=== PATIENT | female | born 1990 | race Caucasian/White ===

== ENCOUNTER 2020-10-23 03:47 | Emergency (ER) | payer OTHER ==
[~2020-10-23] VITALS: Ht 160 cm; Wt 54.4 kg
[~2020-10-23 03:47] MED LIST: FAMOTIDINE PO; PRENATAL; PROMETRIUM; ZOFRAN ODT4 MG PO
[2020-10-23] MEDS ORDERED: DESYREL150 MG PO (03:59)
[2020-10-23 04:44] LABS: ABSOLUTE BASOPHILS 0.1 thou/uL (0.0-0.2); ABSOLUTE LYMPHOCYTES 1.8 thou/uL (0.8-5.3); ABSOLUTE MONOCYTES 0.8 thou/uL (0.0-1.2); ABSOLUTE NEUTROPHILS 12.3 thou/uL (1.6-8.1); BASOPHILS 0.6 %; EOSINOPHILS 0.3 %; HEMATOCRIT 41.9 % (37.0-47.0); HEMOGLOBIN 14.1 gm/dL (12.0-15.0); LYMPHOCYTES 12.1 %; MCH 30.3 pg (26.0-34.0); MCHC 33.6 g/dL (28.0-37.0); MCV 90.2 fL (80.0-100.0); MONOCYTES 5.6 %; MPV 8.8 fl. (7.2-11.1); NUCLEATED RBCS 0 /100WBC; PLATELET COUNT* 288 thou/uL (150-400); POLYS 81.4 %; RBC 4.64 mil/uL (4.20-5.00); RDW-CV 12.9 % (10.5-14.5); WBC 15.1 thou/uL (4.0-11.0)
[2020-10-23 05:00] LABS: CALCIUM 8.1 mg/dL (8.5-10.1)
[2020-10-23 05:04] LABS: ALBUMIN 4.5 g/dL (3.4-5.0); TOTAL BILIRUBIN 0.5 mg/dL (<0.1-1.0); TOTAL PROTEIN 8.1 g/dL (6.4-8.2)
[2020-10-23 05:40] LABS: URINE BILIRUBIN NEGATIVE (Negative); URINE BLOOD TRACE (Negative); URINE CLARITY CLEAR; URINE COLOR YELLOW; URINE GLUCOSE-RANDOM NEGATIVE (Negative); URINE KETONES NEGATIVE (Negative); URINE LEUKOCYTES-REFLEX TRACE (Negative); URINE NITRITE-REFLEX NEGATIVE (Negative); URINE PROTEIN 1+ (Negative); URINE SPECIFIC GRAVITY >= 1.030 (1.005-1.030); URINE UROBILINOGEN 0.2 E.U./dl (0.2-1.0)
[2020-10-23 05:48] LABS: AMP/METHAMP Negative (Negative); BARBITURATES Negative (Negative); BENZODIAZEPINES POSITIVE (Negative); COCAINE Negative (Negative); METHADONE Negative (Negative); OPIATES Negative (Negative); PCP Negative (Negative); THC POSITIVE (Negative)
[2020-10-23 05:49] LABS: SQUAMOUS 4-10 Moderate /LPF (0-3)
[2020-10-23 05:50] LABS: CRYSTALS None Seen /LPF (None Seen); FINE GRANULAR CASTS 0-3 Few /LPF (None Seen); MUCUS 4-6 Moderate strn/LPF (None Seen); URINE RBC 0-2 Rare /HPF (0-2); URINE WBC-REFLEX 6-15 Few /HPF (0-5)
[2020-10-23 18:11] VITALS: BP 131/85
== END 2020-10-23 18:14 | disposition still patient (30) ==
LOC: M.ERS 03:47
PROVIDERS: Emergency Medicine
DX: F31.9 Bipolar disorder, unspecified (principal); Z20.822 Contact with and (suspected) exposure to COVID-19; Z79.899 Other long term (current) drug therapy; Z88.0 Allergy status to penicillin

== ENCOUNTER 2020-12-27 10:00 | Emergency (ER) | payer OTHER ==
[~2020-12-27] VITALS: Ht 160 cm; Wt 52.2 kg
[~2020-12-27 10:00] MED LIST changes: +DESYREL150 MG PO
[2020-12-27] MEDS ORDERED: KLONOPIN1 MG PO (10:16)
[2020-12-27 10:46] LABS: ABSOLUTE BASOPHILS 0.1 thou/uL (0.0-0.2); ABSOLUTE LYMPHOCYTES 1.1 thou/uL (0.8-5.3); ABSOLUTE MONOCYTES 0.7 thou/uL (0.0-1.2); ABSOLUTE NEUTROPHILS 7.4 thou/uL (1.6-8.1); BASOPHILS 0.5 %; EOSINOPHILS 0.3 %; HEMATOCRIT 42.7 % (37.0-47.0); HEMOGLOBIN 14.4 gm/dL (12.0-15.0); LYMPHOCYTES 11.9 %; MCH 30.7 pg (26.0-34.0); MCHC 33.7 g/dL (28.0-37.0); MCV 91.1 fL (80.0-100.0); MONOCYTES 7.5 %; MPV 8.9 fl. (7.2-11.1); NUCLEATED RBCS 0 /100WBC; PLATELET COUNT* 237 thou/uL (150-400); POLYS 79.8 %; RBC 4.68 mil/uL (4.20-5.00); RDW-CV 13.2 % (10.5-14.5); WBC 9.3 thou/uL (4.0-11.0)
[2020-12-27 10:49] LABS: URINE BILIRUBIN NEGATIVE (Negative); URINE BLOOD NEGATIVE (Negative); URINE CLARITY CLEAR; URINE COLOR YELLOW; URINE GLUCOSE-RANDOM NEGATIVE (Negative); URINE KETONES NEGATIVE (Negative); URINE LEUKOCYTES-REFLEX NEGATIVE (Negative); URINE NITRITE-REFLEX NEGATIVE (Negative); URINE PROTEIN NEGATIVE (Negative); URINE SPECIFIC GRAVITY <= 1.005 (1.005-1.030); URINE UROBILINOGEN 0.2 E.U./dl (0.2-1.0)
[2020-12-27 10:52] LABS: CALCIUM 9.2 mg/dL (8.5-10.1); CREATININE 0.7 mg/dL (0.6-1.3); POTASSIUM 3.6 mmol/L (3.5-5.1)
[2020-12-27 10:56] LABS: ALBUMIN 4.6 g/dL (3.4-5.0); TOTAL BILIRUBIN 0.5 mg/dL (<0.1-1.0); TOTAL PROTEIN 8.1 g/dL (6.4-8.2)
[2020-12-27 10:57] LABS: AMP/METHAMP Negative (Negative); BARBITURATES Negative (Negative); BENZODIAZEPINES Negative (Negative); COCAINE Negative (Negative); METHADONE Negative (Negative); OPIATES Negative (Negative); PCP Negative (Negative); THC POSITIVE (Negative)
[2020-12-27] MEDS ORDERED: CLONAZEPAM 0.50.5 M1 PO (12:14)
[2020-12-27] MEDS ORDERED: ZOFRAN ODT4 MG DISSOLVE (12:16)
[2020-12-27 12:25] VITALS: BP 150/81
--- NOTE | 2020-12-27 16:20 | EKG ---
[place] [address] ELECTROCARDIOGRAM REPORT Name: TAMIKO MONTESBERLETamra Branch Room: [facility]#: [id number] Admission: 12/27/20 Attend Phys: Discharge: 12/27/20 Date of : 88 Date of Service: 12/27/20 [facility] Report #: [id number] THIS REPORT FOR: //name// [facility] ED Test Date: 2020-12-27 Test Time: 10:37:48 Pat Name: RAMIN MONTES Department: Room: Gender: F Communications Planner: ZENAIDA : 1990 Requested By: Levi Kay Order Number: [id number] MD: Nestor Rizo Measurements Intervals Muddy Rate: 81 P: IA: QRS: 66 QRSD: 115 T: 4 QT: 408 QTc: 474 Interpretive Statements Atrial fibrillation Incomplete right bundle branch block Baseline wander in lead(s) V5,V6 No previous ECG available for comparison Electronically Signed On 12-27-2020 16:20:06 CDT by Nsetor Rizo [email or web address] <ELECTRONICALLY SIGNED> By: Nestor Rizo MD, FACC 12/27/20 1620 1037 1037 Nestor Rizo MD, [facility] /EPI
== END 2020-12-27 12:25 | disposition home or self-care (01) ==
LOC: M.ERS 10:00
PROVIDERS: Emergency Medicine Emergency Medical Services
DX: F41.9 Anxiety disorder, unspecified (principal); F17.210 Nicotine dependence, cigarettes, uncomplicated; Z98.890 Other specified postprocedural states; Z79.899 Other long term (current) drug therapy